=== PATIENT | male | born 1930 | race Caucasian/White ===

== ENCOUNTER 2018-05-15 22:49 | Inpatient (IN) | payer OTHER ==
[~2018-05-15] VITALS: Ht 175.3 cm; Wt 106.0 kg
[~2018-05-15 22:49] MED LIST: ALBU3IS INH; ALBU90OI INH; AMLO5 PO; AMOX875 PO; CHOL10002 PO; GLYB2.5 PO; INDERAL XL80 MG PO; LEVEMIR FL100 UNIT/1 SC; LISI20 PO; METF500 PO; PRED20 PO; TAMS.4ER PO
[2018-05-15] MEDS ORDERED: STRIVERDI RESPIM4 GM INH (23:08)
[2018-05-15] MEDS ORDERED: ZOLP5 PO (23:09)
[2018-05-15] MEDS ORDERED: SENN187 PO (23:09)
[2018-05-15] MEDS ORDERED: DULO60 PO (23:10)
[2018-05-15] MEDS ORDERED: HYDHCL25 PO (23:11)
[2018-05-15] MEDS ORDERED: MOME220I INH (23:11)
[2018-05-15] MEDS ORDERED: Humalog100 UNIT/1 SC (23:12)
[2018-05-15 23:13] LABS: BASOPHILS ABSOLUTE AUTO 0.09 K/mm3 (0.00-0.23); BASOPHILS PERCENT AUTO 1 % (0-2); EOSINOPHILS ABSOLUTE AUTO 1.33 K/mm3 (0.00-0.68); EOSINOPHILS PERCENT AUTO 11 % (0-6); Hematocrit 47.3 % (37.0-53.0); Hemoglobin 15.7 g/dL (13.5-17.5); IMMATURE GRAN ABSOLUTE AUTO 0.06 K/mm3 (0.00-0.10); IMMATURE GRAN PERCENT AUTO 1 % (0-1); LYMPHOCYTES ABSOLUTE AUTO 2.08 K/mm3 (0.84-5.20); LYMPHOCYTES PERCENT AUTO 16 % (21-46); MONOCYTES ABSOLUTE AUTO 0.91 K/mm3 (0.16-1.47); MONOCYTES PERCENT AUTO 7 % (4-13); Mean Corpuscular HGB 29.1 pg (26.0-34.0); Mean Corpuscular HGB Conc 33.2 g/dL (31.5-36.5); Mean Corpuscular Volume 88 fL (80-100); Mean Platelet Volume 9.5 fL (9.1-12.4); NEUTROPHILS ABSOLUTE AUTO 8.23 K/mm3 (1.96-9.15); NEUTROPHILS PERCENT AUTO 65 % (41-73); Platelet Count 246 K/mm3 (150-400); RDW Coefficient Variation 12.9 % (11.7-14.2); RDW Standard Deviation 41.4 fL (35.1-46.3); Red Blood Cell Count 5.39 M/mm3 (4.30-5.90)
[2018-05-15] MEDS ORDERED: HYDR1TAB94 (23:15)
[2018-05-15 23:31] LABS: Alanine Aminotransfer (ALT/SGP 21 U/L (12-78); Albumin, Blood 3.9 g/dL (3.4-5.0); Alk Phos 55 U/L (50-136); Anion Gap 9 mmol/L (6-16); Aspartate Aminotrans (AST/SGOT 12 U/L (12-37); Bilirubin, Total 0.3 mg/dL (0.1-1.0); Blood Urea Nitrogen 23 mg/dL (8-24); Bun/Creatinine Ratio 19.7 (12.0-20.0); CO2, Blood 27 mmol/L (21-32); Calcium, Blood 10.1 mg/dL (8.5-10.1); Chloride, Blood 101 mmol/L (98-108); Creatinine, Blood 1.17 mg/dL (0.60-1.20); Globulin, Blood 4.1 g/dL (2.2-4.0); Glomerular Filtration Rate >60 (60-); Glucose, Blood 168 mg/dL (70-99); Potassium, Blood 4.4 mmol/L (3.5-5.5); Sodium, Blood 137 mmol/L (136-145)
[2018-05-15 23:54] LABS: Influenza A Negative (NEGATIVE); Influenza B Negative (NEGATIVE)
--- NOTE | 2018-05-16 04:38 | NUR ---
SHIFT SUMMARY: PATIENT ARRIVED TO [facility] AT APPROX 0316 VIA GURNEY FROM ER, FAMILY AT BEDSIDE. PATIENT EXTREMELY EKWOK AND FAMILY (DAUGHTER IS SUPERVISOR [employer]) ASSISTED IN ADMISSION. ADMISSION COMPLETED, PATIENT AND FAMILY ORIENTED TO ROOM, CALL LIGHT AND HOSPITAL POLICIES. PATIENT ALERT AND ORIENTED, SLIDE TRANSFER TO BED D/T SOB WITH EXERTION, VSS, BED LOW AND LOCKED, CALL LIGHT WITHIN REACH, MONITORING CLOSELY.
[2018-05-16 10:49] LABS: Hemoglobin 15.1 g/dL (13.5-17.5); Mean Corpuscular HGB 29.4 pg (26.0-34.0); Mean Corpuscular HGB Conc 34.3 g/dL (31.5-36.5); Mean Corpuscular Volume 86 fL (80-100); Mean Platelet Volume 9.7 fL (9.1-12.4); Platelet Count 244 K/mm3 (150-400); RDW Coefficient Variation 12.9 % (11.7-14.2); RDW Standard Deviation 39.8 fL (35.1-46.3); Red Blood Cell Count 5.14 M/mm3 (4.30-5.90); White Blood Cell Count 9.86 K/mm3 (4.00-11.30)
[2018-05-16 11:13] LABS: Alanine Aminotransfer (ALT/SGP 21 U/L (12-78); Albumin, Blood 3.6 g/dL (3.4-5.0); Albumin/Globulin Ratio 0.9 (0.8-1.8); Alk Phos 51 U/L (50-136); Anion Gap 11 mmol/L (6-16); Aspartate Aminotrans (AST/SGOT 15 U/L (12-37); Bilirubin, Total 0.4 mg/dL (0.1-1.0); Blood Urea Nitrogen 26 mg/dL (8-24); Bun/Creatinine Ratio 23.9 (12.0-20.0); CO2, Blood 23 mmol/L (21-32); Calcium, Blood 9.8 mg/dL (8.5-10.1); Chloride, Blood 100 mmol/L (98-108); Creatinine, Blood 1.09 mg/dL (0.60-1.20); Globulin, Blood 3.9 g/dL (2.2-4.0); Glomerular Filtration Rate >60 (60-); Glucose, Blood 303 mg/dL (70-99); Potassium, Blood 4.2 mmol/L (3.5-5.5); Sodium, Blood 134 mmol/L (136-145); Total Protein, Blood 7.5 g/dL (6.4-8.2)
--- NOTE | 2018-05-16 18:07 | NUR ---
END OF SHIFT; PT CURRENTLY MED TELE STATUS. HE IS ORIENTED X 3. FAMILY MEMBER IN ROOM WITH PATIENT AT ALL TIMES DURING DAY. PT COMPLAINS ABOUT BEING IN HOSPITAL AND WOULD LIKE TO GO HOME. HE IS PERSUADED TO REMAIN BY FAMILY MEMBERS SINCE THEY ARE CONCERNED THAT HIS RESPIRATORY STATUS WAS GREATLY DECREASED OVER PAST WEEK. PT RECEIVES INSLULIN X 3 TODAY FOR ELEVATED CBG'S. PER PATIENT AND FAMILY PT HAD EPISODE OF STEROID PSYCHOSIS NOTED LAST WEEK WHEN [facility] AND [facility] SEE[facility] SPIDERS AND PEOPLE THAT WERE NOT THERE. STEROIDS ARE DC'D BY THIS AFTERNOON AFTER NOTIFIED BY THIS RN OF STEROID REACTION. WILL CONTINUE TO MONITOR THIS PATIENT UNTIL REPORT AND HAND OFF TO NOC SHIFT RN.
--- NOTE | 2018-05-16 23:13 | NUR ---
ASSUMED CARE OF PATIENT AT APPROXIMATELY 1905 FROM SALLIE Bird RN. PATIENT ALERT AND ORIENTED TO SELF, FAMILY AND FOLLOWING DIRECTIONS. PATIENT DENIES PAIN AND DIZZINESS. PATIENT REPORTS CHRONIC NUMBNESS, TINGLING TO FEET. PATIENT REPORTS HE FELT NAUSEOUS AFTER DINNER BUT NOT CURRENTLY. MULTIPLE FAMILY MEMBERS AT BEDSIDE; ASSISTS WITH CARE. MAT/WAP ON TELE; OXYGEN SATURATION ABOVE 90% ON ROOM AIR. PATIENT MEDICAL TELE STATUS. PATIENT USES URINAL BEDSIDE AND IN BED OCCASIONALLY. PIV S/L. PATIENT CURRENTLY SLEEPING IN BED; CALL LIGHT IN REACH; BED ALARM ON; BED IN LOWEST POSISTION; WILL CONTINUE TO MONITOR AND ASSESS UNTIL END OF SHIFT.
--- NOTE | 2018-05-17 06:43 | NUR ---
NO ACUTE CHANGES TO REPORT. PATIENT SLEPT APPROX 9 HOURS LAST NIGHT. VSS. WILL CONTINUE TO MONITOR AND ASSESS UNTIL END OF SHIFT.
--- NOTE | 2018-05-17 07:45 | NUR ---
AM NOTE. ASSUMED CARE OF PT APROX 0700, PT IS A&Ox4, SBA IN THE ROOM AND [place]. PT WAS ADMITTED DUE TO COPD EXAC. PT HAS IMRPOVED GREATLY SINCE ADMIT. PT IS CURRENTLY >90% ON RA. TELE INTACT, WAP IN THE 70'S, PT'S BP 126/76. TRACE EDEMA NOTED TO THE PT'S BLLE AND BLUE. L/S DIM W/EXP WHEEZES T/O. BT PRESENT AND HYPERACTIVE, ABD IS SOFT AND NONTENDER TO PALP. CALL LIGHT IN REACH, BED IS LOCKED AND LOW WILL CONTINUE TO MONITOR.
--- NOTE | 2018-05-17 08:45 | NUR ---
PT UPDATE... PROVIDER AT BEDSIDE, D/C ORDERS OBTAINED. PT IS VERY ANXIOUS TO BE HOME. FAMILY AT BEDSIDE TO TRANSPORT HOME. WILL CONTINUE TO MONITOR.
[2018-05-17] MEDS ORDERED: PANT20 PO (10:22)
[2018-05-17] MEDS ORDERED: NICO21TP TOP (10:22)
[2018-05-17] MEDS ORDERED: PRED10 PO (10:23)
[2018-05-17] MEDS ORDERED: NYST100000 MT (10:24)
--- NOTE | 2018-05-17 11:10 | NUR ---
PT D/C. PT WAS D/C'D HOME WITH FAMILY. DISCHARGE INFORMATION WAS GONE OVER WITH PT AND FAMILY. MEDICATIONS WERE EXPLAINED WITH PT AND FAMILY. PT AND FAMILY DENY ANY FURTHER QUESTIONS COMMENTS OR CONCERNS. PT WAS D/C'D WITH ALL BELONGINS AND ESCORTED OUT VIA W/C. IV WAS REMOVED WNL.
[2018-05-17] MEDS ORDERED: CLOT10 MT (11:20)
== END 2018-05-17 10:55 | disposition home or self-care (01) | DRG 189 ==
LOC: ER 22:49 → PCU 05-16 00:49
PROVIDERS: Emergency Medicine; ADMIT Internal Medicine
DX: J96.01 Acute respiratory failure with hypoxia (principal); J44.1 Chronic obstructive pulmonary disease with (acute) exacerbation; J96.02 Acute respiratory failure with hypercapnia; G47.33 Obstructive sleep apnea (adult) (pediatric); E11.9 Type 2 diabetes mellitus without complications; F17.200 Nicotine dependence, unspecified, uncomplicated; I16.0 Hypertensive urgency; I10 Essential (primary) hypertension; I25.10 Atherosclerotic heart disease of native coronary artery without angina pectoris; Z88.8 Allergy status to other drugs, medicaments and biological substances; Z79.4 Long term (current) use of insulin; Z79.899 Other long term (current) drug therapy
CPT/HCPCS: 36415; 71045; 80053; 82947; 83880; 85025; 85027; 87804; 93005; 93010; 94640; 94644; 94660; 94762; 99285-25; J1650; J2930

== ENCOUNTER 2018-12-13 18:19 | Emergency (ER) | payer OTHER ==
[~2018-12-13] VITALS: Ht 172.7 cm; Wt 99.8 kg
[~2018-12-13 18:19] MED LIST changes: +CLOT10 MT; +DULO60 PO; +HYDHCL25 PO; +HYDR1TAB94; +Humalog100 UNIT/1 SC; +MOME220I INH; +NICO21TP TOP; +NYST100000 MT; +PANT20 PO; +PRED10 PO; +SENN187 PO; +STRIVERDI RESPIM4 GM INH; +ZOLP5 PO
[2018-12-13 18:46] LABS: BASOPHILS ABSOLUTE AUTO 0.04 K/mm3 (0.00-0.23); BASOPHILS PERCENT AUTO 0 % (0-2); EOSINOPHILS ABSOLUTE AUTO 0.68 K/mm3 (0.00-0.68); EOSINOPHILS PERCENT AUTO 7 % (0-6); Hematocrit 40.7 % (37.0-53.0); Hemoglobin 13.5 g/dL (13.5-17.5); IMMATURE GRAN ABSOLUTE AUTO 0.04 K/mm3 (0.00-0.10); IMMATURE GRAN PERCENT AUTO 0 % (0-1); LYMPHOCYTES ABSOLUTE AUTO 1.52 K/mm3 (0.84-5.20); LYMPHOCYTES PERCENT AUTO 15 % (21-46); MONOCYTES ABSOLUTE AUTO 1.04 K/mm3 (0.16-1.47); MONOCYTES PERCENT AUTO 10 % (4-13); Mean Corpuscular HGB 28.9 pg (26.0-34.0); Mean Corpuscular HGB Conc 33.2 g/dL (31.5-36.5); Mean Corpuscular Volume 87 fL (80-100); Mean Platelet Volume 9.9 fL (9.1-12.4); NEUTROPHILS ABSOLUTE AUTO 6.75 K/mm3 (1.96-9.15); NEUTROPHILS PERCENT AUTO 67 % (41-73); Platelet Count 198 K/mm3 (150-400); RDW Coefficient Variation 13.1 % (11.7-14.2); RDW Standard Deviation 41.8 fL (35.1-46.3); Red Blood Cell Count 4.67 M/mm3 (4.30-5.90); White Blood Cell Count 10.07 K/mm3 (4.00-11.30)
[2018-12-13 18:59] LABS: Alanine Aminotransfer (ALT/SGP 22 U/L (12-78); Albumin, Blood 3.4 g/dL (3.4-5.0); Albumin/Globulin Ratio 0.8 (0.8-1.8); Alk Phos 45 U/L (50-136); Anion Gap 7 mmol/L (6-16); Aspartate Aminotrans (AST/SGOT 16 U/L (12-37); Bilirubin, Total 0.3 mg/dL (0.1-1.0); Blood Urea Nitrogen 29 mg/dL (8-24); Bun/Creatinine Ratio 27.9 (12.0-20.0); CO2, Blood 23 mmol/L (21-32); Calcium, Blood 9.8 mg/dL (8.5-10.1); Chloride, Blood 106 mmol/L (98-108); Creatinine, Blood 1.04 mg/dL (0.60-1.20); Glomerular Filtration Rate >60 (60-); Glucose, Blood 268 mg/dL (70-99); Potassium, Blood 4.2 mmol/L (3.5-5.5); Sodium, Blood 136 mmol/L (136-145); Total Protein, Blood 7.4 g/dL (6.4-8.2)
[2018-12-13 19:47] LABS: Source, Urine Clean Catch
[2018-12-13 19:51] LABS: Bilirubin, Urine Neg (Neg); Blood, Urine 1+ (Neg); Glucose Qualitative, Urine 4+ (Neg); Ketones, Urine Neg (Neg); Leukocyte Esterase, Urine Neg (Neg); Nitrite, Urine Neg (Neg); Protein, Urine 1+ (Neg); Urobilinogen, Urine NORM (Normal)
[2018-12-13 19:58] LABS: Appearance, Urine Clear (Clear); Color, Urine Yellow (P-Yellow)
[2018-12-13 19:59] LABS: Bacteria Few /hpf; Red Blood Cells, Urine 0-2 /hpf (0-2); Squamous Epithelial Cells Not Seen /hpf (Few); White Blood Cells, Urine 0-2 /hpf (0-5)
== END 2018-12-13 22:28 | disposition home or self-care (01) ==
LOC: ER 18:19
PROVIDERS: Emergency Medicine
DX: J44.1 Chronic obstructive pulmonary disease with (acute) exacerbation (principal); E11.65 Type 2 diabetes mellitus with hyperglycemia; I48.91 Unspecified atrial fibrillation; E86.0 Dehydration; I12.9 Hypertensive chronic kidney disease with stage 1 through stage 4 chronic kidney disease, or unspecified chronic kidney disease; E11.22 Type 2 diabetes mellitus with diabetic chronic kidney disease; N18.9 Chronic kidney disease, unspecified; I25.10 Atherosclerotic heart disease of native coronary artery without angina pectoris; Z87.891 Personal history of nicotine dependence; Z88.8 Allergy status to other drugs, medicaments and biological substances; Z79.899 Other long term (current) drug therapy; Z79.4 Long term (current) use of insulin; Z79.52 Long term (current) use of systemic steroids
CPT/HCPCS: 71046; 80053; 81001; 83880; 85025; 93005; 93010; 94640; 99284-25